=== PATIENT | female | born 1945 | race Two or more races ===

== ENCOUNTER 2017-11-18 14:50 | Outpatient (CLI) | payer OTHER | END 2017-11-18 15:03 | disposition home or self-care (01) | LOC: MAMO-SONO 14:50 | DX: Z12.31 Encounter for screening mammogram for malignant neoplasm of breast (principal); Z87.898 Personal history of other specified conditions; N62 Hypertrophy of breast ==

== ENCOUNTER → 2018-05-21 | Outpatient (CLI) | payer OTHER | END | disposition home or self-care (01) | LOC: NUCLEAR 10:00 | DX: M81.0 Age-related osteoporosis without current pathological fracture (principal) ==

== ENCOUNTER 2018-09-09 08:50 | Outpatient (CLI) | payer OTHER | END 2018-09-09 10:09 | disposition home or self-care (01) | LOC: OFIC 805 08:50 | DX: J31.0 Chronic rhinitis (principal); H91.13 Presbycusis, bilateral; H61.23 Impacted cerumen, bilateral ==

== ENCOUNTER 2018-11-19 10:32 | Outpatient (CLI) | payer OTHER | END 2018-11-19 10:34 | disposition home or self-care (01) | LOC: RAD 10:32 | DX: H25.012 Cortical age-related cataract, left eye (principal); Z98.42 Cataract extraction status, left eye ==

== ENCOUNTER 2018-12-07 10:57 | Outpatient (CLI) | payer OTHER | END 2018-12-07 11:03 | disposition home or self-care (01) | LOC: EKG 10:57 | DX: I10 Essential (primary) hypertension (principal) ==

== ENCOUNTER 2019-09-23 08:49 | Outpatient (CLI) | payer OTHER | END 2019-09-23 08:58 | disposition home or self-care (01) | LOC: SONOGRAMA 08:49 | PROVIDERS: ATTEND Internal Medicine Cardiovascular Disease | DX: D11.0 Benign neoplasm of parotid gland (principal); E04.2 Nontoxic multinodular goiter ==

== ENCOUNTER 2021-05-22 09:37 | Outpatient (CLI) | payer OTHER | END 2021-05-22 09:39 | disposition home or self-care (01) | LOC: SONOGRAMA 09:37 | PROVIDERS: ATTEND Internal Medicine Cardiovascular Disease | DX: E03.8 Other specified hypothyroidism (principal) ==

== ENCOUNTER 2021-06-28 07:29 | Outpatient (CLI) | payer OTHER | END 2021-06-28 07:30 | disposition home or self-care (01) | LOC: NUCLEAR 07:29 | PROVIDERS: ATTEND Internal Medicine Hematology & Oncology | DX: C34.11 Malignant neoplasm of upper lobe, right bronchus or lung (principal) ==